=== PATIENT | female | born 1960 | race African-American/Black ===

== ENCOUNTER 2017-10-07 08:16 | Day surgery (SDC) | payer OTHER ==
[~2017-10-07] VITALS: Ht 162.6 cm; Wt 99.3 kg
[2017-10-07] VITALS (8 sets, daily range): BP systolic 144–179; BP diastolic 69–87
[2017-10-07] MEDS ORDERED: PROBIOTICS PO (11:27)
[2017-10-07] MEDS ORDERED: ATENOLOL25 MG ORAL (11:27)
[2017-10-07] MEDS ORDERED: LEVSIN0.125 MG ORAL (11:27)
[2017-10-07] MEDS ORDERED: HYDROCHLOROTHIA25 MG ORAL (11:27)
[2017-10-07] MEDS ORDERED: PROTONIX40 MG ORAL (11:27)
[2017-10-07] MEDS ORDERED: LISINOPRIL10 MG ORAL (11:27)
[2017-10-07] MEDS ORDERED: Propofol 200mg/20ml IV ONE (12:00)
[2017-10-07] MEDS ORDERED: Lidocaine 1% MPF 10mg/ml 5ml ONE (12:00)
[2017-10-07] MEDS ORDERED: LR 1000ml ONE (12:00)
[2017-10-07] MEDS ORDERED: Atropine Sulfate 0.4mg/ml inj ONE (12:00)
--- NOTE | 2017-10-07 12:00 | Short Stay Surgery H&P ---
History of Present Illness History of Present Illness Chief Complaint Abdominal pains/GERDS HPI Aby Torrez is a 57 year old female who was admitted on for Gerd, Abdominal Pain Patient History Allergies: Coded Allergies: NSAIDS (NON-STEROIDAL ANTI-INFLAMMA (Verified Allergy, Severe, Anaphylaxis , 10/06/17) PAST MEDICAL HISTORY: (1) Hx of cholecystectomy (2) H/O knee surgery (3) H/O hysterectomy for benign disease (4) Hypertension (5) Prediabetes Medication History Scheduled Atenolol* (Tenormin*), 25 MG ORAL DAILY, (Reported) Hydrochlorothiazide* (Hydrochlorothiazide*), 25 MG ORAL DAILY, (Reported) Hyoscyamine Sulfate (Levsin), 0.125 MG ORAL NEED, (Reported) Lisinopril* (Lisinopril*), 10 MG ORAL DAILY, (Reported) Pantoprazole* (Protonix*), 40 MG ORAL DAILY, (Reported) [Probiotics], 1 PO DA, (Reported) Review of Systems Cardiovascular: Reports: hypertension Respiratory: Reports: no symptoms Skeletal: Reports: trauma Gastrointestinal: Reports: gastro esophageal reflux disease Genitourinary: Reports: no symptoms Neurologic: Reports: no symptoms Endocrine: Reports: diabetes - type 2 Hematologic: Reports: no symptoms Physical Exam Vital Signs Last Vital Signs Date Time Temp Pulse Resp B/P (MAP) Pulse Ox O2 Delivery O2 Flow Rate FiO2 10/07/17 10:50 97.5 50 20 147/72 (97) 100 97.5 10/07/17 10:49 Room Air Skin: normal HENT: normal Heart: normal Lungs: normal Abdomen: abnormal Extremities: normal Genitourinary: normal Plan Plan of Care Upper and lower GI endoscopies Preop Interventions None. Summary of Findings See the repots Attestation Are the patient's medical conditions optimized for surgery? Attestation Response: yes Palmira Barrett MD Oct 07, 2017 12:00
--- NOTE | 2017-10-07 12:01 | Pre-Procedure Note/Attestation ---
Pre-Procedure Note/Attestation Complete Prior to Procedure Planned Procedure: left Procedure Narrative: Endoscopic examination of the upper and lower GI tract via endoscopic procedures Indications for Procedure Pre-Operative Diagnosis: R/O Peptic Ulcer/ Gastritis/colitis Attestation I attest that I discussed the nature of the procedure; its benefits; risks and complications; and alternatives (and the risks and benefits of such alternatives ), prior to the procedure, with the patient (or the patient's legal entry level sales representative). I attest that, if there was a reasonable possibility of needing a blood transfusion, the patient (or the patient's legal entry level sales representative) was given the [place] [employer] standardized written summary, pursuant to the Abdi Garibaldi Blood Safety Act ([place] Health and Safety Code # 1645, as amended). I attest that I re-evaluated the patient just prior to the surgery and that there has been no change in the patient's H&P, except as documented below: Palmira Barrett MD Oct 07, 2017 12:01
[2017-10-07] MEDS ORDERED: LR 1000ml 1,000 ML IVLG SCH (12:13)
[2017-10-07] MEDS ORDERED: fentaNYL 100 mcg/2 mL IV PRN (12:15)
[2017-10-07] MEDS ORDERED: Atropine Inj 1mg/10ml Syr IV PRN (12:15)
[2017-10-07] MEDS ORDERED: DiphenhydrAMINE 50mg/ml Inj IVP PRN (12:15)
[2017-10-07] MEDS ORDERED: Midazolam 2mg/2ml Inj IVP PRN (12:15)
[2017-10-07] MEDS ORDERED: Labetalol 5mg/ml 20ml vial IV PRN (12:15)
--- NOTE | 2017-10-07 12:18 | Anethesia Preoperative Eval ---
Anesthesia Pre-op PMH/ROS General Date of Evaluation: Oct 07, 2017 Time of Evaluation: 12:08 Anesthesiologist: omar ASA Score: ASA 3 Mallampati Score Class I : Soft palate, uvula, fauces, pillars visible Class II: Soft palate, uvula, fauces visible Class III: Soft palate, base of uvula visible Class IV: Only hard plate visible Mallampati Classification: Class II Surgeon: tammie Diagnosis: abdominal pain, gerd Surgical Procedure: egd/colonoscopy Anesthesia History: none Social History: smoking - nonsmoker Family History: no anesthesia problems Allergies: Coded Allergies: NSAIDS (NON-STEROIDAL ANTI-INFLAMMA (Verified Allergy, Severe, Anaphylaxis , 10/06/17) Medications: see eMAR Past Medical History Cardiovascular: Reports: HTN, arrhythmia Gastrointestinal/Genitourinary: Reports: other - liver disease Endocrine: Reports: DM Other: obesity Anesthesia Pre-op Phys. Exam Physician Exam Last Vital Signs Date Time Temp Pulse Resp B/P (MAP) Pulse Ox O2 Delivery O2 Flow Rate FiO2 10/07/17 10:50 97.5 50 20 147/72 (97) 100 97.5 10/07/17 10:49 Room Air Constitutional: NAD Neurologic: CN 2-12 intact Cardiovascular: RRR Respiratory: CTA Gastrointestinal: S/NT/ND Airway Exam Mallampati Score: Class II MO: full Neck: supple TMD: 2fb ROM: full Anesthesia Pre-op A/P Risk Assessment & Plan Assessment: asa3 Plan: mac Status Change Before Surgery: No Pre-Antibiotics Drug: Char Rivero MD Oct 07, 2017 12:18
--- NOTE | 2017-10-07 13:00 | Endoscopy Procedure Note ---
Endoscopy Procedure Note General Indication for Procedure: Abdominal pains/GERD Procedures Performed: EGD - Completely normal Upper GI endoscopy with some bile in the stomach. Biopsy was obtained from gastric antrum per random., colonoscopy - Occasional diverticular lesions seen in the colon with high redundancy of left colon, otherwise normal total colonoscopy. Specimen: yes Pt Tolerated Procedure Well: Yes Estimated Blood Loss: none Anesthesia Anesthesiologist: Dr. Dinh Anesthesia: moderate sedation Medications Medication Given: see anesthesia record Inserted Devices Implant(s) used?: No Quality Quality of Bowel Preparation: Fair Did scope reach the cecum?: Yes Was there any complications?: No GI Core Measures 50 yrs or older w/o bx or poly: Yes 10yrs. F/U not recommended: Yes 10 yrs. F/U needed: Yes Med reason:<3 yrs.: System Reason:<3 yrs.: Last colonoscopy >= to 3yrs: Yes Palmira Barrett MD Oct 07, 2017 13:00
--- NOTE | 2017-10-07 13:00 | Discharge Instructions ---
Discharge Instructions Discharge Instructions Follow up with: Visit the doctor in office after 2 weeks For Congestive Heart Failure Reminder Report to your physician any weight gain of 5 pounds or more in one week. Palmira Barrett MD Oct 07, 2017 13:00
--- NOTE | 2017-10-07 18:45 | Operative Note - Dictated ---
DATE OF OPERATION: 10/07/2017 SURGEON: Palmira Barrett M.D. PROCEDURE: Esophagogastroduodenoscopy with biopsy. PREOPERATIVE DIAGNOSIS: Abdominal pain, history of chronic gastroesophageal reflux, rule out peptic ulcer disease. POSTOPERATIVE DIAGNOSIS: Completely normal upper GI endoscopy with some fqakwvr-xg-njylxilj amount of bile in the stomach consistent with duodenal gastric bile reflux. Biopsy was taken per random from the antral area. MEDICATION USED: Per Dr. Dinh, anesthesiologist. INSTRUMENT: GIF Olympus upper GI video endoscope. DESCRIPTION OF PROCEDURE: The patient after arriving endoscopy unit, was told about risks and benefits of the procedure, which she accepted and signed informed consent. She was then put on the left lateral decubitus position. After adequate IV sedation, the scope was gently passed through the cricopharyngeal area, was lodged into the upper esophagus, and gradually advanced towards gastroesophageal junction. The entire length of the esophagus looked normal. No evidence of varices, inflammatory process, ulceration, stricture, etc. was found. GE junction also looked normal without any evidence of hiatal hernia or Corbin's. At this time, the scope was advanced into the stomach. Gastric cavity was distended with insufflation of air revealing [id number]-[id number] amount of bile collected in the body and the fundus of the stomach consistent with duodenal gastric bile reflux. Underlying mucosa, however, remained to be normal. There was no any evidence of gastritis, ulcers, polyps, tumors, etc. At this time, one random biopsy from the antral area was obtained and subsequently, the scope was passed through the pylorus. First and second portion of duodenum were found to be completely normal. At this time, the scope was pulled back into the stomach. A retroflexion maneuver was applied and the area of the gastroesophageal junction was examined in a closer fashion, which looked normal. Finally, the scope was pulled out and the procedure was terminated. The patient tolerated the procedure well. Palmira Barrett M.D. DR: ALICIA JOB#: [id number] CC:
--- NOTE | 2017-10-07 19:00 | Operative Note - Dictated ---
DATE OF OPERATION: 10/07/2017 SURGEON: Palmira Barrett M.D. PROCEDURE: Total colonoscopy. PREOPERATIVE DIAGNOSIS: Abdominal pain, constipation and diarrhea. POSTOPERATIVE DIAGNOSIS: Rare diverticular lesions found in the colon with high redundancy of the left colon. Otherwise, complete normal study up to the base of the cecum as examined. MEDICATION USED: Per Dr. Dinh, anesthesiologist. INSTRUMENT: GIF Olympus video colonoscope. DESCRIPTION OF PROCEDURE: The patient, after arriving in endoscopy unit, was told about risks and benefits of the procedure, which she accepted and signed informed consent. At this time, she was put on the left lateral decubitus position. After adequate IV sedation, the scope was gently passed through the anal area and careful examination of dissection along with the rectum did not reveal any pathology and no hemorrhoids. At this time, the scope was passed through rather redundant left colon, which took significant amount of time to pass through and finally the scope reached to the splenic flexure. From there, it was guided into transverse colon. Along the colon, there was some diverticular lesions of no great significance noted. Finally, the scope was gradually advanced towards the hepatic flexure, guided into the right colon all the way to the base of the cecum and all these areas remained to be normal. The colon cleanup was fair and at this point, upon reaching to the base of the cecum within 6 minutes, the scope was gradually pulled out and re-evaluation did not reveal any other pathologies. The patient tolerated the procedure well and left the endoscopy room in a good condition. Palmira Barrett M.D. DR: JOHN JOB#: [id number] CC:
--- NOTE | 2017-10-07 19:45 | Pre-op HX & Phy Repo 2 SIG ---
DATE OF ADMISSION: 10/07/2017 HISTORY OF PRESENT ILLNESS: The applicant is a 57-year-old female, who is being seen prior to undergoing the procedures of upper and lower GI endoscopy, for which she has been scheduled to receive for evaluation of gastrointestinal conditions and complaint that she has suffered subsequent to her work injury. The applicant basically is complaining of generalized pain over the abdomen, mostly located over the right lower abdominal area, but she also does have the pain over the upper part of the abdomen as well. She reports that these pains are of moderate intensity in nature. The applicant reports that she has had the injury at job site with the lower back area going back to 2010 and she has received some multiple medications including NSAID and that after some time she stopped taking them because she had allergy towards that. The applicant however was treated with multiple medications in forms of analgesics such as Tylenol and [place]. These medications also made her kind of sick from GI point of few. The patient has had injury over the right knee that she had received surgery for going back to 1993 with meniscus tear. The patient has also been diagnosed in the past to have history of irritable bowel syndrome, IBS, as she has been complaining of bloating and gas, and she was known to have had history of diverticulosis of the colon. The patient at this point complains of significant heartburn and reflux and also intermittent constipation and diarrhea, for which she has been diagnosed in the past to have irritable bowel syndrome. She denies any hematemesis, melena, or hematochezia. There is no history of dysphagia. The patient has been treated with multiple medications in regard to her IBS including antispasmodic such as Bentyl. She has also been using Vicodin for the pain that she has in different parts of the body. PAST MEDICAL HISTORY: Hypertension and she is in prediabetic stage. ALLERGIES: To Motrin and NSAIDs. HABITS: The applicant rarely drinks alcohol, but does not smoke cigarettes. MEDICATIONS: At this time is hydrochlorothiazide, atenolol, Levsin, probiotics, and IBgard. REVIEW OF SYSTEMS: Basically history of present illness. The patient denies any chest pain, shortness of breath, cough, hemoptysis, etc. There was no urinary symptom except the problem is for the gastrointestinal at this point and some joint pains. PHYSICAL EXAMINATION: GENERAL: At this time reveals an alert, awake and oriented female, does not seem to be in acute distress. She looks overweight, well developed and nourished. VITAL SIGNS: All stable. HEENT: Normocephalic. Pupils are equal in size and reactive to light and accommodation. No visible jaundice. Buccal cavity, tongue midline, well hydrated. No ulcers. NECK: Supple. No JVD, thyromegaly, or adenopathy. CHEST: Clear to auscultation and percussion. No rales or rhonchi. HEART: S1 and S2 normal. Regular rhythm. No gallops or murmur. ABDOMEN: Soft, but obese and also there are areas of tenderness mostly in the right lower quadrant of the abdomen. There is no hepatosplenomegaly. Bowel sounds are present. No masses noted. EXTREMITIES: Unremarkable. SKIN AND LYMPHATICS: None significant. PRELIMINARY PREOPERATIVE IMPRESSION: 1. Generalized abdominal pain of uncertain etiology, rule out colitis versus irritable bowel syndrome, aggravated by stress and anxiety related to work accident. 2. History of gastroesophageal reflux, rule out peptic ulcer disease, gastritis, aggravated by anxiety and stress. 3. Hypertension and prediabetic stage. 4. Obesity. 5. History of diverticulosis of the colon. RECOMMENDATION: The applicant seems to be stable at this time to undergo the procedure of upper and lower GI endoscopies, for which she has been scheduled. She understands the risks and benefits and will sign the consent. Said Carmella Barrett DR: JOHN JOB#: [id number] CC:
--- NOTE | 2017-10-08 08:07 | Immediate Post-Op Evaluation ---
Immediate Post-Op Evalulation Immediate Post-Op Evalulation Procedure: egd/colonoscopy/bx Date of Evaluation: Oct 07, 2017 Time of Evaluation: 13:13 IV Fluids: 300ml lr Blood Products: none Estimated Blood Loss: negligible Blood Pressure Systolic: 144 Blood Pressure Diastolic: 87 Pulse Rate: 61 Respiratory Rate: 18 O2 Sat by Pulse Oximetry: 98 Temperature (Fahrenheit): 97.7 Pain Score (1-10): 0 Nausea: No Vomiting: No Complications none Patient Status: awake, reacts, patent Hydration Status: adequate Drug: Char Rivero MD Oct 08, 2017 08:07
[2017-10-08 08:10] VITALS: BP 158/81
--- NOTE | 2017-10-08 08:10 | 48 Hour Post Anesthesia Eval ---
Post Anesthesia Evaluation Procedure: egd/colonoscopy/bx Date of Evaluation: Oct 07, 2017 Time of Evaluation: 13:15 Blood Pressure Systolic: 158 0: 81 Pulse Rate: 51 Respiratory Rate: 18 Temperature (Fahrenheit): 97.7 O2 Sat by Pulse Oximetry: 99 Airway: patent Nausea: No Vomiting: No Pain Intensity: 0 Hydration Status: adequate Cardiopulmonary Status: stable Mental Status/LOC: patient returned to baseline Post-Anesthesia Complications: none Follow-up care needed: N/A Char Denton MD Oct 08, 2017 08:10
== END 2017-10-07 14:25 | disposition home or self-care (01) ==
LOC: GAS 08:16
DX: K29.50 Unspecified chronic gastritis without bleeding (principal); K21.9 Gastro-esophageal reflux disease without esophagitis; K59.00 Constipation, unspecified; R19.7 Diarrhea, unspecified; K57.30 Diverticulosis of large intestine without perforation or abscess without bleeding; Q43.8 Other specified congenital malformations of intestine; I10 Essential (primary) hypertension; R73.03 Prediabetes; E66.9 Obesity, unspecified; K76.9 Liver disease, unspecified; Z90.710 Acquired absence of both cervix and uterus; Z88.6 Allergy status to analgesic agent
CPT/HCPCS: 43239; 45378; 82962; J0461; J2704; J7120; 94003; 94150